=== PATIENT | male | born 1990 | race African-American/Black ===

== ENCOUNTER 2018-08-22 23:45 | Emergency (ER) | payer OTHER ==
[2018-08-22] MEDS ORDERED: DEXAMETHASONE 10 MG/ML VIAL IVP ONE (23:58)
[2018-08-22] MEDS ORDERED: NS 1,000 ML IV ONE ×2 (23:58)
--- NOTE | 2018-08-22 23:58 | EDPHY ---
H & P Stated Complaint: RUFFIN, "HEART BEATING REALLY HARD", "PRICKLY PAINFUL SKIN" , STARTED FRI NIGHT Source: Patient Exam Limitations: No limitations - Personal History Current Tetanus/Diphtheria Vaccine: Unsure - Medical/Surgical History Hx Asthma: No Hx Chronic Respiratory Disease: No Hx Diabetes: No Hx Cardiac Disease: No Hx Renal Disease: No Hx Cirrhosis: No Hx Alcoholism: No Hx HIV/AIDS: No Hx Splenectomy or Spleen Trauma: No Other PMH: SPINAL INJ, WISDOM TEETH - Social History Smoking Status: Never smoked Time Seen by Provider: 08/22/18 23:54 HPI/ROS: HPI: This is a 28-year-old male who presents with Chief Complaint: RUFFIN, "HEART BEATING REALLY HARD", "PRICKLY PAINFUL SKIN" , STARTED FRI NIGHT Location: Body Quality: prickly skin Duration: Started this evening Signs and Symptoms: no shortness of breath at rest, no shortness of breath on exertion, + cough, no chest pain, no palpitations, no lower extremity edema, no wheezing, no orthopnea, no paroxysmal nocturnal dyspnea, no fever, no injury/ trauma, no hemoptysis, no carpal pedal spasms Timing: Acute, worsening Severity: [id number] Context: Patient reports that starting yesterday she started to feel fatigued, + migraine like headache, and heart racing and beating really hard for the last 24 hr. This evening he started to developed prickly painful skin that covered his entire body. Denies a rash. He does have a cough that is nonproductive in nature. Denies any wheezing, fever, shortness of breath, chest pain. No history of lung disease. Nonsmoker. Did not receive influenza vaccine this year. Denies fever, sore throat, neck stiffness, swollen glands. Minimal caffeine use. Trying to drink liquids to stay hydrated. Headache is not worst of his life and denies thunderclap symptoms. No Primary care provider in the area. Modifying Factors: See above Comment: ROS: A comprehensive 10 system review of systems is otherwise negative aside from elements mentioned in the history of present illness. MEDICAL/SURGICAL/SOCIAL HISTORY: Medical history: Spinal injury Surgical history: wisdom teeth removal Social history: Never smoked. Uses CBD oral. Patient recently moved to [facility] from [facility]. CONSTITUTIONAL: Extremely well-appearing, slightly anxious, adult black male, awake and alert, no obvious distress HEENT: Atraumatic and normocephalic, PERRL, EOMI. Nares patent; no rhinorrhea; no nasal mucosal edema. Tympanic membranes clear. Oropharynx clear, no exudate and moist pink mucosa. Airway patent. No lymphadenopathy. No meningismus. Cardiovascular: Normal S1/S2, mild tachycardia, regular rhythm, without murmur rub or gallop. PULMONARY/CHEST: Symmetrical and nontender. Clear to auscultation bilaterally. Good air movement. No accessory muscle usage. ABDOMEN: Soft, nondistended, nontender, no rebound, no guarding, no peritoneal signs, no masses or organomegaly. No CVAT. EXTREMITIES: 2/2 pulses, strength 5/5, no deformities, no clubbing, no cyanosis or edema. NEUROLOGICAL: no focal neuro deficits. GCS 15. SKIN: Warm and dry, no erythema. no rash. Good capillary refill. (Sanjuanita Watts) Constitutional: Initial Vital Signs Temperature (C) 37.9 C 08/22/18 23:47 Heart Rate 98 08/22/18 23:47 Respiratory Rate 18 08/22/18 23:47 Blood Pressure 115/74 08/22/18 23:47 O2 Sat (%) 97 08/22/18 23:47 O2 Delivery Mode Room Air Allergies/Adverse Reactions: PAIN PILLS Allergy (Uncoded 08/22/18 23:47) Home Medications: Medication Instructions Recorded NK [No Known Home Meds] 08/22/18 Medical Decision Making ED Course/Re-evaluation: Vital signs reviewed and show mild tachycardia. Afebrile. No systemic signs. EKG my read shows normal sinus rhythm with a rate of 96 beats per minute. No acute ischemic changes, no arrhythmias. IV access and laboratory studies ordered. Given 2 L normal saline, IV Decadron 10 mg, IV Ativan 1 mg, IV Toradol 30 mg Chest x-ray ordered due to cough. 0038: Chest x-ray my read via PAC shows no opacity, no effusion, no pneumothorax, no widened mediastinum. 0045: Labs reviewed and grossly unremarkable. No signs of leukocytosis/anemia/platelet dysfunction/JD/electrolyte imbalance/ mono/VTE/pericarditis. 1340: Reassessed patient who reports near complete relief of symptoms. [facility] given. Discussed possibility of possibly needing Holter monitor and Cardiology follow- up if symptoms persist. Suspect viral illness. This patient was seen under the supervision of my secondary supervising physician. I evaluated care for this patient independently. Discussed this patient with Dr. Canas. (Sanjuanita Watts) PHYSICIAN DOCUMENTATION: The patient was evaluated and managed by the Physician Bench Repair Technician. My co- signature indicates that I have reviewed this chart and I agree with the findings and plan of care as documented. I am the secondary supervising physician. (Cathy Canas) Differential Diagnosis: Headache including but not limited to subarachnoid hemorrhage, migraine headache , tension headache and infectious causes such as meningitis, pharyngitis and sinusitis. (Sanjuanita Watts) - Data Points Laboratory Results: Laboratory Results 08/23/18 00:15 08/23/18 00:15 08/23/18 08/23/18 08/23/18 00:15 00:15 00:15 WBC RBC Hgb Hct MCV MCH MCHC RDW Plt Count MPV Neut % (Auto) Lymph % (Auto) [place] % (Auto) Eos % (Auto) Baso % (Auto) Nucleat RBC Rel Count Absolute Neuts (auto) Absolute Lymphs (auto) Absolute Monos (auto) Absolute Eos (auto) Absolute Basos (auto) Absolute Nucleated RBC Immature Gran % Immature Gran # RBC/WBC/PLT Morphology Platelet Estimate D-Dimer < 0.27 ug/mLFEU ug/mLFEU (0.00-0.50) Sodium 138 mEq/L mEq/L (135-145) Potassium 3.4 mEq/L mEq/L (3.3-5.0) Chloride 102 mEq/L mEq/L (97-110) Carbon Dioxide 26 mEq/l mEq/l (22-31) Anion Gap 10 mEq/L mEq/L (6-14) BUN 12 mg/dL mg/dL (7-23) Creatinine 1.0 mg/dL mg/dL (0.7-1.3) Estimated GFR > 60 Glucose 123 mg/dL H mg/dL (70-100) Calcium 9.3 mg/dL mg/dL (8.5-10.4) Monoscreen NEGATIVE (NEGATIVE) 08/23/18 00:15 WBC 4.57 10^3/uL 10^3/uL (3.80-9.50) RBC 5.20 10^6/uL 10^6/uL (4.40-6.38) Hgb 14.9 g/dL g/dL (13.7-17.5) Hct 42.8 % % (40.0-51.0) MCV 82.3 fL fL (81.5-99.8) MCH 28.7 pg pg (27.9-34.1) MCHC 34.8 g/dL g/dL (32.4-36.7) RDW 11.9 % % (11.5-15.2) Plt Count 203 10^3/uL 10^3/uL (150-400) MPV 9.8 fL fL (8.7-11.7) Neut % (Auto) 80.9 % H % (39.3-74.2) Lymph % (Auto) 10.1 % L % (15.0-45.0) [place] % (Auto) 5.7 % % (4.5-13.0) Eos % (Auto) 2.2 % % (0.6-7.6) Baso % (Auto) 0.9 % % (0.3-1.7) Nucleat RBC Rel Count 0.0 % % (0.0-0.2) Absolute Neuts (auto) 3.70 10^3/uL 10^3/uL (1.70-6.50) Absolute Lymphs (auto) 0.46 10^3/uL L 10^3/uL (1.00-3.00) Absolute Monos (auto) 0.26 10^3/uL L 10^3/uL (0.30-0.80) Absolute Eos (auto) 0.10 10^3/uL 10^3/uL (0.03-0.40) Absolute Basos (auto) 0.04 10^3/uL 10^3/uL (0.02-0.10) Absolute Nucleated RBC 0.00 10^3/uL 10^3/uL (0-0.01) Immature Gran % 0.2 % % (0.0-1.1) Immature Gran # 0.01 10^3/uL 10^3/uL (0.00-0.10) RBC/WBC/PLT Morphology TNP Platelet Estimate TNP D-Dimer Sodium Potassium Chloride Carbon Dioxide Anion Gap BUN Creatinine Estimated GFR Glucose Calcium Monoscreen Medications Given: Discontinued Medications Dexamethasone (Decadron Injection) 10 mg IVP EDNOW ONE Stop: 08/22/18 23:59 Last Admin: 08/23/18 00:20 Dose: 10 mg Sodium Chloride (Ns) 1,000 mls @ 0 mls/hr IV EDNOW ONE; Wide Open PRN Reason: Protocol Stop: 08/22/18 23:59 Last Admin: 08/23/18 00:20 Dose: 1,000 mls Sodium Chloride (Ns) 1,000 mls @ 0 mls/hr IV EDNOW ONE; Wide Open PRN Reason: Protocol Stop: 08/22/18 23:59 Last Admin: 08/23/18 00:20 Dose: 1,000 mls Lorazepam (Ativan Injection) 1 mg IVP EDNOW ONE Stop: 08/23/18 00:01 Last Admin: 08/23/18 00:20 Dose: 1 mg Ondansetron HCl (Zofran) 4 mg IVP EDNOW ONE Stop: 08/23/18 00:23 Last Admin: 08/23/18 00:23 Dose: 4 mg Departure - Departure Disposition: Home, Routine, Self-Care Clinical Impression: Viral syndrome, Heart palpitations Condition: Good Instructions: Heart Palpitations (ED), Viral Syndrome (ED) Additional Instructions: Rest as much as possible until you are feeling better. Consume a minimum of 8-10 glasses of water or electrolyte fluid replacement drinks that include Gatorade, Powerade, Pedialyte. Please avoid caffeinated products until all symptoms have resolved. Establish primary care [facility] at [facility] or with Dr. Perez in the next 5-7 days. They chrissy determine if you need a cardiology referral for Holter monitor. Return to the ER immediately if you experience new, continued or worsened chest pain, chest pain that radiates, chest pain accompanied by exertion or associated with shortness of breath, sweating, nausea, dizziness, back pain, or any other symptoms that concern you. Referrals: [facility],. [Clinic] - 3-4 days, if not improved Dakota Perez MD [Medical Doctor] - As per Instructions
[2018-08-23] MEDS ORDERED: LORazepam 2 MG/ML INJ IVP ONE
[2018-08-23] MEDS ORDERED: DEXAMETHASONE 4 MG/ML VIAL ONE (00:06)
[2018-08-23] MEDS ORDERED: LORazepam 2 MG/ML INJ ONE (00:08)
[2018-08-23] MEDS ORDERED: ONDANSETRON 4 MG/2 ML VIAL ONE (00:16)
[2018-08-23] MEDS ORDERED: ONDANSETRON 4 MG/2 ML VIAL IVP ONE (00:22)
[2018-08-23 00:44] LABS: PLATELET COUNT 203 10^3/uL (150-400)
[2018-08-23 01:49] VITALS: BP 129/78
--- NOTE | 2018-08-23 02:04 | CPEKG ---
Test Reason : OPEN Blood Pressure : / mmHG Vent. Rate : 096 BPM Atrial Rate : 094 BPM P-R Int : 149 ms QRS Dur : 090 ms QT Int : 321 ms P-R-T Axes : 075 067 069 degrees QTc Int : 406 ms Sinus rhythm Confirmed by Cathy Canas ([id number]) on 08/23/2018 2:03:18 AM Referred By: Confirmed By:Cathy Canas
== END 2018-08-23 01:49 | disposition home or self-care (01) ==
DX: B34.9 Viral infection, unspecified (principal); R00.2 Palpitations
CPT/HCPCS: 96374; J1100; J2060; J2405